=== PATIENT | male | born 2000 | race Caucasian/White ===

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

== ENCOUNTER → 2022-01-26 | Outpatient (CLI) | payer MEDICAID ==
[~2022-01-26] MED LIST changes: +FLEXERIL 1010 MG/TAB PO; +NAPROXEN 3375 MG/TAB PO
== END ==
LOC: COL.CARD 11:39
DX: Z79.899 Other long term (current) drug therapy (principal)

== ENCOUNTER 2024-03-18 13:34 | Emergency (ER) | payer MEDICAID ==
[~2024-03-18] VITALS: Ht 172.7 cm; Wt 91.8 kg
[2024-03-18 13:43] VITALS: TEMP 98.1
[2024-03-18] MEDS ORDERED: FOCALIN XR40 MG PO (13:49)
[2024-03-18 16:27] LABS: COLLECTION METHOD CLEAN CATCH
[2024-03-18 16:30] LABS: BASO # 0.1 K/mm3 (0.0-0.2); EOS # 0.1 K/mm3 (0.0-0.7); EOS % 0.7 % (0.0-4.0); GRAN # 4.8 K/mm3 (1.4-6.5); GRAN % 59.4 % (42.2-75.2); HEMATOCRIT 50.6 % (42.0-52.0); HEMOGLOBIN 17.9 g/dl (13.5-18.0); LYMPH # 2.4 K/mm3 (1.2-3.4); LYMPH % 30.3 % (20.0-51.0); MEAN CELL VOLUME 82 fl (80.0-100.0); MEAN CORPUSCULAR HEMOGLOBIN 29 pg (27-31); MEAN CORPUSCULAR HGB CONC 35 g/dl (33.0-37.0); MEAN PLATELET VOLUME 9.6 fl (7.4-10.4); MONO # 0.7 K/mm3 (0.1-0.6); MONO % 8.2 % (1.7-9.3); PLATELET COUNT 332 K/mm3 (130-400); RED BLOOD COUNT 6.21 M/mm3 (4.20-5.60); REDCELL DISTRIBUTION WIDTH-CV 12.5 % (11.5-14.5)
[2024-03-18] MEDS ORDERED: HYDROmorphone 0.5 MG/0.5 ML SYRINGE IV ONE (16:30)
[2024-03-18] MEDS ORDERED: NS 1,000 ML IV ONE (16:30)
[2024-03-18] MEDS ORDERED: Ondansetron 4 MG/2 ML VIAL IV ONE (16:30)
[2024-03-18] MEDS ORDERED: Ketorolac 30 MG/ML VIAL IV ONE (16:30)
[2024-03-18 16:32] LABS: PH 7.5 (5.0-8.5); URINE APPEARANCE CLEAR (CLEAR/HAZY); URINE BLOOD NEGATIVE (NEGATIVE); URINE COLOR YELLOW (YELLOW); URINE GLUCOSE NEGATIVE (NEGATIVE); URINE KETONE NEGATIVE (NEGATIVE); URINE NITRATE NEGATIVE (NEGATIVE); URINE PROTEIN(semi-quant) NEGATIVE (NEGATIVE)
[2024-03-18 16:50] LABS: ALBUMIN 4.9 g/dL (3.5-5.0); BILIRUBIN,TOTAL 0.8 mg/dL (0.2-1.2); C-REACTIVE PROTEIN 0.06 mg/dL (0.00-0.50); CALCIUM 10.7 mg/dL (8.4-10.2); CREATININE, serum 1.03 mg/dL (0.72-1.25); POTASSIUM 3.6 mEq/L (3.5-4.5); TOTAL PROTEIN 8.1 g/dl (6.2-8.1)
[2024-03-18] MEDS ORDERED: Iohexol 300 - 100 ML VIAL IV ONE (17:26)
[2024-03-18] MEDS ORDERED: NS 100 ML IV SCH (17:27)
[2024-03-18] MEDS ORDERED: FLEXERIL 1010 MG/TAB PO (18:15)
[2024-03-18] MEDS ORDERED: Cyclobenzaprine 10 MG TAB PO ONE (18:15)
[2024-03-18 18:27] VITALS: BP 123/70; PULSE 68
== END 2024-03-18 18:27 | disposition home or self-care (01) ==
LOC: COL.ER 13:34
PROVIDERS: Emergency Medicine; Nurse Practitioner
DX: R10.9 Unspecified abdominal pain (principal)
CPT/HCPCS: J1170; J1885; J2405; J7030; Q9967